=== PATIENT | male | born 1965 | race Caucasian/White ===

== ENCOUNTER 2020-02-23 15:17 | Observation (INO) | payer OTHER ==
[~2020-02-23] VITALS: Ht 177.8 cm; Wt 108.6 kg
[~2020-02-23 15:17] MED LIST: FLEXERIL10 MG PO; MOTRIN800 MG PO; TRAMADOL HCL50 MG PO; ULTRAM50 MG PO
[2020-02-23 15:21] VITALS: BP 131/94
[2020-02-23] MEDS ORDERED: LISINOPRIL10 M1 PO (15:27)
[2020-02-23 15:50] LABS: BASO % 0.6 % (0.0-1.0); EOS # 0.2 10*3/uL (0.0-0.4); EOS % 2.8 % (1.0-4.0); HEMATOCRIT 44.6 % (42.0-52.0); LYMPH # 1.6 10*3/uL (1.3-4.4); MEAN CELL VOLUME 85.1 fl (80.0-94.0); MEAN CORPUSCULAR HGB CONC 34.1 g/dl (33.0-37.0); MEAN PLATELET VOLUME 11.7 fl (9.6-12.3); MONO # 0.7 10*3/uL (0.1-1.0); MONO % 9.7 % (3.0-9.0); NEUT # 4.2 10*3/uL (2.3-7.9); NEUT % 62.6 % (47.0-73.0); PLATELET COUNT AUTOMATED 202 10*3/uL (130-400); RED BLOOD COUNT 5.24 10*6/uL (4.50-5.90); RED CELL DISTRI WIDTH 11.8 % (0-14.5); WHITE BLOOD COUNT 6.7 10*3/uL (4.8-10.8)
[2020-02-23] MEDS ORDERED: NEXIUM20 M1 PO (15:52)
--- NOTE | 2020-02-23 15:59 | NUR ---
THE PATIENT CAN NOT PROVIDE A URINE SAMPLE YET
[2020-02-23 16:05] LABS: ALBUMIN 4.2 gm/dl (3.1-4.5); CREATININE 1.5 mg/dL (0.70-1.30); POTASSIUM 4.1 mmol/L (3.5-5.1); TOTAL PROTEIN 7.9 gm/dL (6.4-8.2)
[2020-02-23 17:10] LABS: BILIRUBIN NEGATIVE; BLOOD NEGATIVE (NEGATIVE); CLARITY CLEAR (CLEAR); COLOR YELLOW (YELLOW); GLUCOSE 3+; KETONE TRACE; LEUKO ESTERASE NEGATIVE (NEGATIVE); NITRITE NEGATIVE (NEGATIVE); SPECIFIC GRAVITY > 1.030 (1.001-1.030)
[2020-02-23 17:13] LABS: BACTERIA TRACE; EPITHELIAL CELLS 0-2; RBC 0-2 rbc/hpf (0-2); WBC 0-2 wbc/hpf (0-5)
--- NOTE | 2020-02-23 17:56 | NUR ---
MSTime: 175 A 54 year old MALE admitted to 5E under services of [place] DO. Pt. arrived via ambulatory from ER. Chief complaint: HIGH BLOOD SUGAR CYN CARBONE.
[2020-02-23 17:57] VITALS: BP 153/84
--- NOTE | 2020-02-23 19:00 | NUR ---
REPORT OBTAINED FROM PREVIOUS RN.
--- NOTE | 2020-02-23 19:58 | NUR ---
ASSUMED CARE OF PATIENT. PATIENT IS AAOX3 RESTING IN BED WITH EASY AND REGULAR RESPERS ON ROOM AIR. ASSESSMENT IS COMPLETE WITH NO C/O OR S/S OF DISTRESS NOTED AT THIS TIME. PATIENT REQUESTING EXTRA PILLOW AND BLANKET. PILLOW AND BLANKET PROVIDED. BED IS LOW, LOCKED, AND CALL LIGHT IS WITHIN REACH. IV FLUIDS INFUSING PER ORDER. WHITEBOARD UPDATED. WILL CONTINUE TO MONITOR, SEE INTERVENTIONS.
[2020-02-23 20:00] VITALS: BP 136/76
[2020-02-24] VITALS: BP 114/78
[2020-02-24 06:08] LABS: BASO % 0.4 % (0.0-1.0); EOS # 0.1 10*3/uL (0.0-0.4); EOS % 2.4 % (1.0-4.0); LYMPH # 1.2 10*3/uL (1.3-4.4); LYMPH % 27.3 % (27.0-41.0); MEAN CELL VOLUME 85.3 fl (80.0-94.0); MEAN CORPUSCULAR HGB 29.4 pg (27.0-31.0); MEAN CORPUSCULAR HGB CONC 34.5 g/dl (33.0-37.0); MEAN PLATELET VOLUME 12.2 fl (9.6-12.3); MONO # 0.5 10*3/uL (0.1-1.0); MONO % 10.2 % (3.0-9.0); NEUT # 2.7 10*3/uL (2.3-7.9); NEUT % 59.5 % (47.0-73.0); PLATELET COUNT AUTOMATED 153 10*3/uL (130-400); RED BLOOD COUNT 4.69 10*6/uL (4.50-5.90); RED CELL DISTRI WIDTH 11.7 % (0-14.5); WHITE BLOOD COUNT 4.5 10*3/uL (4.8-10.8)
[2020-02-24 06:37] LABS: ALBUMIN 3.4 gm/dl (3.1-4.5); ALKALINE PHOSPHATASE 38 U/L (45-117); BUN 18 mg/dl (7-24); CHLORIDE 105 mmol/L (98-107); CHOLESTEROL 180 mg/dL (<200); CREATININE 1.04 mg/dL (0.70-1.30); FREE T4 1.03 ng/dl (0.76-1.46); HDL CHOLESTEROL 24 mg/dl (40-60); LDL CHOLESTEROL 105 mg/dL (9-159); POTASSIUM 4.1 mmol/L (3.5-5.1); SGOT/AST 80 IU/L (3-35); SGPT/ALT 115 U/L (12-78); SODIUM 135 mmol/L (136-145); TOTAL PROTEIN 6.7 gm/dL (6.4-8.2); TRIGLYCERIDES 256 mg/dl (<150); VLDL CHOLESTEROL 51 mg/dL (6-40)
[2020-02-24 08:00] VITALS: BP 154/96
[2020-02-24 09:25] LABS: VITAMIN D, 25-HYDROXY 26.7 ng/mL (30-100)
[2020-02-24] MEDS ORDERED: LANTUS SOL100 UNIT/1 SC (11:51)
[2020-02-24] MEDS ORDERED: ASPIRIN ADULT L81 M1 PO (11:51)
[2020-02-24] MEDS ORDERED: HUMALOG100 UNIT/1 SC (11:51)
[2020-02-24] MEDS ORDERED: GLUCOPHAGE500 M1 PO (11:52)
[2020-02-24] MEDS ORDERED: ATORVASTATIN CA40 M1 PO (11:56)
[2020-02-24 12:00] VITALS: BP 135/88
--- NOTE | 2020-02-24 12:40 | NUR ---
Discharge instructions reviewed with patient/family. Patient receptive and verbalizes understanding. Follow-up care arranged. Written instructions given to patient/family. SAM BECKFORD
== END 2020-02-24 14:13 | disposition home or self-care (01) ==
LOC: ED 15:17 → EDHOLD 16:52 → 5E 17:31
PROVIDERS: Nurse Practitioner Family; Student in an Organized Health Care Education/Training Program; ADMIT Family Medicine; ATTEND Family Medicine
DX: E11.65 Type 2 diabetes mellitus with hyperglycemia (principal); N17.0 Acute kidney failure with tubular necrosis; R74.0 Nonspecific elevation of levels of transaminase and lactic acid dehydrogenase [LDH]; E87.8 Other disorders of electrolyte and fluid balance, not elsewhere classified; E87.1 Hypo-osmolality and hyponatremia; D72.829 Elevated white blood cell count, unspecified; R35.8 Other polyuria; R63.1 Polydipsia; E83.41 Hypermagnesemia; E55.9 Vitamin D deficiency, unspecified; I10 Essential (primary) hypertension; K21.9 Gastro-esophageal reflux disease without esophagitis

== ENCOUNTER → 2020-09-03 | Outpatient (CLI) | payer OTHER ==
[~2020-09-03] MED LIST changes: +ASPIRIN ADULT L81 M1 PO; +ATORVASTATIN CA40 M1 PO; +GLUCOPHAGE500 M1 PO; +HUMALOG100 UNIT/1 SC; +LANTUS SOL100 UNIT/1 SC; +LISINOPRIL10 M1 PO; +NEXIUM20 M1 PO
[2020-09-03 15:28] LABS: BUN 14 mg/dl (7-24); CHLORIDE 107 mmol/L (98-107); CHOLESTEROL 159 mg/dL (<200); CREATININE 1.16 mg/dL (0.70-1.30); HDL CHOLESTEROL 38 mg/dl (40-60); LDL CHOLESTEROL 95 mg/dL (9-159); SODIUM 138 mmol/L (136-145); TRIGLYCERIDES 128 mg/dl (<150); VLDL CHOLESTEROL 26 mg/dL (6-40)
== END | disposition home or self-care (01) ==
LOC: LAB 14:35
PROVIDERS: ATTEND Family Medicine
DX: I10 Essential (primary) hypertension (principal); E11.9 Type 2 diabetes mellitus without complications

== ENCOUNTER 2023-06-08 07:57 | Emergency (ER) | payer OTHER ==
[~2023-06-08] VITALS: Ht 177.8 cm; Wt 104.3 kg
[2023-06-08] MEDS ORDERED: MELOXICAM15 MG PO (08:15)
[2023-06-08 10:18] LABS: EOS % 0.1 % (1.0-4.0); HEMATOCRIT 44.2 % (42.0-52.0); LYMPH # 0.8 10*3/uL (1.3-4.4); LYMPH % 10.4 % (27.0-41.0); MEAN CELL VOLUME 88.9 fl (80.0-94.0); MEAN CORPUSCULAR HGB 29.8 pg (27.0-31.0); MEAN CORPUSCULAR HGB CONC 33.5 g/dl (33.0-37.0); MONO # 0.7 10*3/uL (0.1-1.0); MONO % 8.9 % (3.0-9.0); NEUT % 80.3 % (47.0-73.0); PLATELET COUNT AUTOMATED 179 10*3/uL (130-400); RED BLOOD COUNT 4.97 10*6/uL (4.50-5.90); RED CELL DISTRI WIDTH 12.5 % (0-14.5); WHITE BLOOD COUNT 7.5 10*3/uL (4.8-10.8)
[2023-06-08 10:30] LABS: ACT PARTIAL THROMBO TIME 29.4 SECONDS (20.0-32.1)
[2023-06-08 10:37] LABS: ALKALINE PHOSPHATASE 22 U/L (46-116); BUN 12 mg/dl (9-23); CHLORIDE 102 mmol/L (98-107); CPK 513 U/L (34-171); LIPASE 37 U/L (12-53); POTASSIUM 4.7 mmol/L (3.4-5.1); SGPT/ALT 123 U/L (5-49); TOTAL PROTEIN 7.4 gm/dL (6.0-8.0)
== END 2023-06-08 14:13 | disposition home or self-care (01) ==
LOC: ED 07:57
PROVIDERS: Emergency Medicine
DX: B34.9 Viral infection, unspecified (principal); E11.9 Type 2 diabetes mellitus without complications; I10 Essential (primary) hypertension; R10.2 Pelvic and perineal pain; Z20.822 Contact with and (suspected) exposure to COVID-19; Z90.89 Acquired absence of other organs; Z98.890 Other specified postprocedural states

== ENCOUNTER 2023-12-25 17:33 | Emergency (ER) | payer BC ==
[~2023-12-25] VITALS: Ht 177.8 cm; Wt 99.8 kg
[~2023-12-25 17:33] MED LIST changes: +MELOXICAM15 MG PO
[2023-12-25] MEDS ORDERED: Lidocaine Hydrochloride 2% 10 ML AMP SC ONE (18:05)
[2023-12-25] MEDS ORDERED: BUPIVACAINE 0.5% 10 ML VIAL ONE (18:21)
[2023-12-25] MEDS ORDERED: Tdap Vaccine 0.5 ML SYR (Adult Vaccine) IM ONE (18:25)
[2023-12-25] MEDS ORDERED: CEPHALEXIN 500 MG CAP PO ONE (18:25)
[2023-12-25] MEDS ORDERED: CEPHALEXIN500 M1 PO (18:55)
== END 2023-12-25 18:58 | disposition home or self-care (01) ==
LOC: ED 17:33
DX: S60.451A Superficial foreign body of left index finger, initial encounter (principal); W45.8XXA Other foreign body or object entering through skin, initial encounter; Y93.89 Activity, other specified; Y92.89 Other specified places as the place of occurrence of the external cause; Y99.8 Other external cause status; M19.90 Unspecified osteoarthritis, unspecified site; K21.9 Gastro-esophageal reflux disease without esophagitis; E83.41 Hypermagnesemia; I10 Essential (primary) hypertension; E87.1 Hypo-osmolality and hyponatremia; E11.9 Type 2 diabetes mellitus without complications; Z90.89 Acquired absence of other organs; Z98.890 Other specified postprocedural states

== ENCOUNTER → 2024-03-21 | Outpatient (CLI) | payer BC ==
[~2024-03-21] MED LIST changes: +CEPHALEXIN500 M1 PO
== END | disposition home or self-care (01) ==
LOC: RAD 15:37
PROVIDERS: ATTEND Nurse Practitioner
DX: M17.0 Bilateral primary osteoarthritis of knee (principal); G89.29 Other chronic pain; M48.07 Spinal stenosis, lumbosacral region; M48.04 Spinal stenosis, thoracic region; M47.816 Spondylosis without myelopathy or radiculopathy, lumbar region